=== PATIENT | male | born 1960 | race Caucasian/White ===

== ENCOUNTER 2022-02-10 12:53 | Emergency (ER) | payer SELFPAY ==
[2022-02-10 12:52] VITALS: BP 105/80; PULSE 100; RESP 18; TEMP 36.2; O2SAT 100
--- NOTE | 2022-02-10 13:03 | PC.NURSE ---
car is located [address] [place], [place] [id number]
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
[2022-02-10 14:27] LABS: Ethanol 354 mg/dL (<10)
--- NOTE | 2022-02-10 14:40 | PC.NURSE ---
pt not wanted by PD
--- NOTE | 2022-02-10 14:43 | PC.NURSE ---
PT UNABLE TO FIND RIDE TO PICK HIM UP, EDUACTED ON NEED TO STAY UNTIL ETOH IS REDUCED. ORDERED FOOD FOR THE PT
--- NOTE | 2022-02-10 19:11 | PC.NURSE ---
GF OF THE PT, TO TAKE PT HOME PER PROVIDER SULEMA
[2022-02-10 19:15] VITALS: BP 132/86; PULSE 86; RESP 17; O2SAT 99
== END 2022-02-10 19:16 | disposition home or self-care (01) ==
PROVIDERS: Emergency Provider Nurse Practitioner Family
DX: F10.129 Alcohol abuse with intoxication, unspecified (principal); I10 Essential (primary) hypertension; Y90.8 Blood alcohol level of 240 mg/100 ml or more
CPT/HCPCS: 36415; 80307; 99283